=== PATIENT | male | born 1945 | race Caucasian/White ===

== ENCOUNTER 2017-09-11 15:31 | Emergency (ER) | payer OTHER ==
[~2017-09-11] VITALS: Ht 180.3 cm; Wt 78.9 kg
[2017-09-11] MEDS ORDERED: ATENOLOL50 MG (16:17)
[2017-09-11] MEDS ORDERED: ATORVASTATIN CA10 MG (16:18)
[2017-09-11] MEDS ORDERED: LYRICA150 MG (16:18)
[2017-09-11] MEDS ORDERED: MULTI VITAMIN1 EACH (16:18)
== END 2017-09-11 22:12 | disposition home or self-care (01) ==
LOC: ER 15:31
DX: N13.2 Hydronephrosis with renal and ureteral calculous obstruction (principal); K57.30 Diverticulosis of large intestine without perforation or abscess without bleeding